=== PATIENT | female | born 1955 | race Caucasian/White ===

== ENCOUNTER 2020-12-27 07:09 | Day surgery (SDC) | payer MEDICARE, OTHER, BC ==
[~2020-12-27] VITALS: Ht 170.2 cm; Wt 57.0 kg
[~2020-12-27 07:09] MED LIST: AMLO-150 PO; ATOR10TA9 PO; ATROVENT NS; BUPIVACAINE/PF 0.5% ONE; CHOL10003 PO; IBAN150T15 PO; LEVO25TA4 PO; OMEG1CAP6 PO; QUIN40TA PO; ZINC50CA PO
[2020-12-27] MEDS ORDERED: LACTATED RINGERS 1,000 ML IV SCH (07:30)
[2020-12-27] MEDS ORDERED: CHLORHEXIDINE 15 ML UDC MM ONE (07:30)
[2020-12-27 07:33] VITALS: BP 137/94
[2020-12-27] MEDS ORDERED: MIDAZOLAM 1 MG/ML, 2ML ONE (08:32)
[2020-12-27] MEDS ORDERED: FENTANYL PF 250 MCG/5ML ONE (08:33)
[2020-12-27] MEDS ORDERED: BUPIVACAINE/PF 0.5% ONE (08:49)
[2020-12-27] MEDS ORDERED: SCOPOLAMINE 1MG PATCH TD ONE (08:56)
[2020-12-27] MEDS ORDERED: DEXAMETHASONE 4 MG/ML, 1ML ONE (09:08)
[2020-12-27] MEDS ORDERED: CEFAZOLIN 1,000 MG ONE (09:08)
[2020-12-27] MEDS ORDERED: PROPOFOL 10 MG/ML, 20ML ONE (09:08)
[2020-12-27] MEDS ORDERED: KETOROLAC 30 MG/1 ML ONE (09:08)
[2020-12-27] MEDS ORDERED: ONDANSETRON 2MG/ML, 2ML ONE (09:08)
[2020-12-27] MEDS ORDERED: LIDOCAINE-MPF 1%, 2ML ONE (09:08)
[2020-12-27] MEDS ORDERED: LABETALOL 5MG/ML, 20ML IV PRN (09:30)
[2020-12-27] MEDS ORDERED: OXYcodone 5 MG/5 ML ORAL.SOL UDC PO PRN (09:30)
[2020-12-27] MEDS ORDERED: DIAZEPAM 5 MG/ML, 2ML IVPush PRN (09:30)
[2020-12-27] MEDS ORDERED: HALOPERIDOL 5 MG/ML IV PRN (09:30)
[2020-12-27] MEDS ORDERED: FENTANYL PF 100 MCG/2ML IV PRN (09:30)
[2020-12-27] MEDS ORDERED: ONDANSETRON 2MG/ML, 2ML IVPush PRN (09:30)
[2020-12-27] MEDS ORDERED: DIPHENHYDRAMINE 50 MG/ML, 1ML IVPush PRN (09:30)
[2020-12-27] MEDS ORDERED: METOCLOPRAMIDE 5 MG/ML, 2ML IVPush PRN (09:30)
[2020-12-27] MEDS ORDERED: METOPROLOL 1 MG/ML, 5ML IV PRN (09:30)
[2020-12-27] MEDS ORDERED: hydrALAzine 20 MG/ML, 1ML IV PRN (09:30)
[2020-12-27] MEDS ORDERED: HYDROmorphone 1 MG/ML, 1ML INJ IVPush PRN (09:30)
[2020-12-27] MEDS ORDERED: EPHEDRINE 50 MG/ML, 1ML IVPush PRN (09:30)
[2020-12-27] MEDS ORDERED: ACETAMINOPHEN 325 MG TABLET PO PRN (09:30)
[2020-12-27] MEDS ORDERED: FENTANYL PF 100 MCG/2ML ONE (10:21)
[2020-12-27] MEDS ORDERED: OXYcodone 5 MG/5 ML ORAL.SOL UDC ONE (10:21)
[2020-12-27] MEDS ORDERED: MEPERIDINE/PF 25MG/ML,1ML ONE (10:40)
[2020-12-27] MEDS ORDERED: MEPERIDINE/PF 25MG/0.5ML IVPush PRN (12:00)
== END 2020-12-27 12:15 | disposition home or self-care (01) ==
LOC: OUT 07:09 → EDSEX 08:30 → OUT 12:15
PROVIDERS: ATTEND Orthopaedic Surgery
DX: S52.571A Other intraarticular fracture of lower end of right radius, initial encounter for closed fracture (principal); M81.0 Age-related osteoporosis without current pathological fracture; I10 Essential (primary) hypertension; E03.9 Hypothyroidism, unspecified; Z20.822 Contact with and (suspected) exposure to COVID-19; Z79.899 Other long term (current) drug therapy; Z87.891 Personal history of nicotine dependence; Z82.61 Family history of arthritis; Z82.49 Family history of ischemic heart disease and other diseases of the circulatory system; Z88.5 Allergy status to narcotic agent; Z88.8 Allergy status to other drugs, medicaments and biological substances; X58.XXXA Exposure to other specified factors, initial encounter; Y93.89 Activity, other specified; Y92.89 Other specified places as the place of occurrence of the external cause; Y99.8 Other external cause status
CPT/HCPCS: 25609; 73100; 87635; 93005; C1713; J0690; J1100; J1885; J2175; J2250; J2405; J2704; J3010; J7120; 76000